=== PATIENT | male | born 1950 | race Caucasian/White ===

== ENCOUNTER → 2020-06-22 | Outpatient (CLI) | payer MEDICARE, OTHER ==
[2015-10-14 18:42] VITALS: BP 142/87
[~2020-06-22] MED LIST: ASPIRIN E.C. 8181 MG PO; ATENOLOL1 POW; LISINOPRIL20 MG
== END ==
LOC: RAD 08:00
DX: R74.01 Elevation of levels of liver transaminase levels (principal)